=== PATIENT | female | born 1985 | race Caucasian/White ===

== ENCOUNTER 2016-10-03 22:13 | Emergency (ER) | payer SELFPAY ==
[2016-10-03] MEDS ORDERED: Ondansetron 4 MG Tab.DIS PO ONE (22:29)
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
[2016-10-03 22:49] VITALS: BP 115/70
== END 2016-10-03 22:47 | disposition home or self-care (01) ==
LOC: MW.ED 22:13
DX: R21 Rash and other nonspecific skin eruption (principal); R11.10 Vomiting, unspecified; Z87.891 Personal history of nicotine dependence
CPT/HCPCS: 99283; A9270; 99282